=== PATIENT | female | born 1975 | race Two or more races ===

== ENCOUNTER 2021-12-04 13:26 | Emergency (ER) | payer SELFPAY ==
[~2021-12-04] VITALS: Ht 157.5 cm; Wt 95.0 kg
[2021-12-04] MEDS ORDERED: CALCIUM CHLOR(10%) 100MG/ML 10ML SYRINGE IV ONE (13:32)
[2021-12-04] MEDS ORDERED: EPINEPHrine HCL 1 MG/10 ML SYRG IV ONE (13:32)
[2021-12-04] MEDS ORDERED: SODIUM BICARBONATE 8.4% INJ 50ML SYRINGE IV ONE (13:32)
[2021-12-04] MEDS ORDERED: MAGNESIUM SULFATE 1GM/100ML 100 ML IV ONE (13:34)
[2021-12-04 15:15] VITALS: BP 78/46
== END 2021-12-04 17:02 ==
LOC: EDBD 13:26 → ER 13:31
DX: I46.9 Cardiac arrest, cause unspecified (principal)
CPT/HCPCS: 92950; 99285; J0171; J3475